=== PATIENT | female | born 1985 | race Two or more races ===

== ENCOUNTER 2025-02-16 15:28 | Emergency (ER) | payer OTHER ==
[~2025-02-16] VITALS: Ht 165.1 cm; Wt 59.0 kg
[2025-02-16 15:35] VITALS: BP 103/74; PULSE 70; RESP 15; TEMP 99; O2SAT 98
--- NOTE | 2025-02-16 16:07 | ED.PDOC ---
History of Present Illness HPI Comments 39-year-old female brought in from [facility] presents with a chief complaint of cholecystitis. Patient had blood work, CT scan, and ultrasound done at [facility] and was diagnosed with acute cholecystitis. Patient was transferred to our facility to await surgical evaluation. Patient is contemplating leaving AMA due to being placed in the hallway. Chief Complaint: Nausea/Vomiting Time Seen by MD: 15:51 Reviewed Notes: Medications, Allergies Information Source: Patient Mode of Arrival: Ambulatory Severity: Moderate Timing: Hours Duration: Since onset Prehospital treatment: [employer], Pain Meds, Treatment Past Medical History PAST MEDICAL HISTORY: Denies Surgical History: Denies all surgeries OPTICIAN History: Denies all OPTICIAN Hx Family History Family History: Reviewed,noncontributory to illness Social History Smoker: Non-Smoker Alcohol: Denies ETOH Use Drugs: Denies Drug Use Lives In: Home Constitutional: denies: chills, diaphoresis, fatigue, fever, malaise, sweats, weakness, others EENTM: denies: blurred vision, double vision, ear bleeding, ear discharge, ear drainage, ear pain, ear ringing, eye pain, eye redness, hearing loss, mouth pain, mouth swelling, nasal discharge, nose bleeding, nose congestion, nose pain, photophobia, tearing, throat pain, throat swelling, voice changes, others Respiratory: denies: cough, hemoptysis, orthopnea, SOB at rest, shortness of breath, SOB with excertion, stridor, wheezing, others Cardiovascular: denies: chest pain, dizzy spells, diaphoresis, Dyspnea on exertion, edema, irregular heart beat, left arm pain, lightheadedness, palpitations, PND, syncope, others Gastrointestinal: reports: nausea, vomiting; denies: abdomen distended, abdominal pain, blood streaked bowels, constipated, diarrhea, dysphagia, difficulty swallowing, hematemesis, melena, poor appetite, poor fluid intake, rectal bleeding, rectal pain, others Genitourinary: denies: abnormal vagina bleeding, burning, dyspareunia, dysuria, flank pain, frequency, hematuria, incontinence, pain, , vagina discharge, urgency, others Neurological: denies: dizziness, fainting, headache, left sided numbness, left sided weakness, numbness, paresthesia, pre-existing deficit, right sided numbness, right sided weakness, seizure, speech problems, tingling, tremors, weakness, others Musculoskeletal: denies: back pain, gout, joint pain, joint swelling, muscle pain, muscle stiffness, neck pain, others Integumetry: denies: bruises, change in color, change in hair/nails, dryness, laceration, lesions, lumps, rash, wounds, others Allergic/Immunocompromised: denies: Difficulty Healing, Frequent Infections, Hives, Itching, others Hematologic/Lymphatic: denies: anemia, blood clots, easy bleeding, easy bruising, swollen glands, others Endocrine: denies: excessive hunger, excessive sweating, excessive thirst, excessive urination, flushing, intolerance to cold, intolerance to heat, unexplained weight gain, unexplained weight loss, others Psychiatric: denies: anxiety, bipolar disorder, depression, hopeless, panic disorder, schizophrenia, sleepless, suicidal, others All Other Systems: Reviewed and Negative ( PER HPI) Physical Exam General Appearance: No Apparent Distress, Normal HEENT: Normal ENT Inspection, Pharynx Normal, TMs Normal Neck: Full Range of Motion, Non-Tender, Normal, Normal Inspection Respiratory: Chest Non-Tender, Lungs Clear, No Accessory Muscle Use, No Respiratory Distress, Normal Breath Sounds Cardiovascular: No Edema, No JVD, No Murmur, No Gallop, Normal Peripheral Pulse s, Regular Rate/Rhythm Breast Exam: Deferred Gastrointestinal: No Organomegaly, Non Tender, No Pulsatile Mass, Normal Bowel Sounds, Soft Genitalia: Deferred Pelvic: Deferred Rectal: Deferred Extremities: No calf tenderness, Normal capillary refill, Normal inspection, Normal range of motion, Non-tender, No pedal edema Musculoskeletal : Apperance: Normal Neurologic: Alert, gas dispenser II-XII nml as Tested, No Motor Deficits, Normal Affect, Normal Mood, No Sensory Deficits Cerebellar Function: Normal Reflexes: Normal Skin: Dry, Normal Color, Warm Lymphatic: No Adenopathy Was a procedure done? Was a procedure done?: No Differential Dx Considerations may include: Acute cholecystitis, cholelithiasis Time of 1ST Reevaluation: 16:21 Reevaluation 1ST: Unchanged Patient Education/Counseling: Diagnosis, Treatment Family Education/Counseling: Diagnosis, Treatment SEPSIS Sepsis Screen Physician Orders Complete Blood Count (02/16/25 16:16) Comprehensive Metabolic Panel (02/16/25 16:16) Lipase (02/16/25 16:16) * Surgical Consult (02/16/25 ) NS (02/16/25 16:30) Departure 1 Departure Time of Disposition: 16:17 (Patient was a transfer mood [facility] for acute cholecystitis. Patient had a CT and an ultrasound performed over there showing gallbladder wall thickening gallstones. Patient received antibiotics and pain medication and fluids at the outside hospital and was transferred here for surgi jarvis evaluation.) Impression: Primary Impression: Acute cholecystitis Additional Impression: Right upper quadrant pain Disposition: ADMITTED INPATIENT Admit to: Med Surg Condition: Serious Critical Care Note Critical Care Time?: No Stability Stability form required: No Heart Score Heart Score: Heart Score Response (Comments) Value History N/A 0 EKG N/A 0 Age N/A 0 Risk Factors N/A 0 Troponin N/A 0 Total 0 I personally scribed for GURMEET LAO MD ([email or web address]) on 02/16/25 at 16:07. Electronically submitted by Elias Garcia ([email or web address]). GURMEET LAO MD Feb 16, 2025 16:07
[2025-02-16] MEDS: SODIUM CHLORIDE 0.9% 1,000 ML IV ONE (16:51)
== END 2025-02-16 16:51 | disposition left against medical advice (07) ==
LOC: ER 15:28 → EDBD 15:28 → ER 16:51
DX: K81.0 Acute cholecystitis (principal)